=== PATIENT | female | born 1950 | race Caucasian/White ===

== ENCOUNTER 2018-08-02 16:45 | Inpatient (IN) | payer MEDICARE, BC ==
[~2018-08-02] VITALS: Ht 152.4 cm; Wt 58.2 kg
[~2018-08-02 16:45] MED LIST: ADVIL PM PO; ALLO100 PO; ATEN100 PO; ATOR10 PO; CEPH500 PO; CITA20 PO; CLON1 PO; DIAZ5 PO; DICL75ER PO; DIGO.125 PO; DIGO.25 PO; DILT240 PO; DILT360ER PO; FURO40 PO; GLIP2.5ER PO; GLIP5 PO; HYDACE5 PO; INDO50 PO; LISI20 PO; LISI5 PO; LORA1 PO; MAGCHL64ER PO; MAGN84 PO; MAGOXI400 PO; METF500 PO; METO100 PO; METO50 PO; MULTAQ PO; NEBI10 PO; NEBI5 PO; OMEP20ER PO; OMEPRAZOLE MAGN20 MG PO; POTA10T PO; POTCHL10ER PO; PRAV20 PO; SERT100 PO; SPIR25 PO; TRAM50 PO; TRIHYD253A PO; WARF1 PO; WARF2.5 PO; WARF5 PO; XARELTO15 MG PO; ZOLP10 PO; Zofran4 MG PO
[2018-08-02 17:53] LABS: BASOPHILS ABSOLUTE AUTO 0.08 K/mm3 (0.00-0.23); BASOPHILS PERCENT AUTO 1 % (0-2); EOSINOPHILS PERCENT AUTO 0 % (0-6); Hematocrit 43.6 % (33.0-51.0); Hemoglobin 13.7 g/dL (11.5-16.0); IMMATURE GRAN ABSOLUTE AUTO 0.54 K/mm3 (0.00-0.10); IMMATURE GRAN PERCENT AUTO 4 % (0-1); LYMPHOCYTES ABSOLUTE AUTO 0.75 K/mm3 (0.84-5.20); LYMPHOCYTES PERCENT AUTO 5 % (21-46); MONOCYTES ABSOLUTE AUTO 0.32 K/mm3 (0.16-1.47); MONOCYTES PERCENT AUTO 2 % (4-13); Mean Corpuscular HGB 28.1 pg (26.0-34.0); Mean Corpuscular HGB Conc 31.4 g/dL (31.5-36.5); Mean Corpuscular Volume 89 fL (80-100); Mean Platelet Volume 10.1 fL (9.1-12.4); NEUTROPHILS ABSOLUTE AUTO 12.69 K/mm3 (1.96-9.15); NEUTROPHILS PERCENT AUTO 88 % (41-73); Platelet Count 443 K/mm3 (150-400); RDW Coefficient Variation 17.5 % (11.7-14.2); RDW Standard Deviation 57.1 fL (35.1-46.3); Red Blood Cell Count 4.88 M/mm3 (3.80-5.20); White Blood Cell Count 14.38 K/mm3 (4.00-11.30)
[2018-08-02] MEDS ORDERED: FURO40 PO (18:07)
[2018-08-02] MEDS ORDERED: ATOR20 PO (18:08)
[2018-08-02 18:19] LABS: Troponin I 0.037 ng/mL (0.000-0.040)
[2018-08-02 18:23] LABS: Albumin, Blood 3.6 g/dL (3.4-5.0); Albumin/Globulin Ratio 0.7 (0.8-1.8); Bilirubin, Total 0.3 mg/dL (0.1-1.0); Bun/Creatinine Ratio 12.7 (12.0-20.0); Creatinine, Blood 9.05 mg/dL (0.40-1.00); Potassium, Blood 7.6 mmol/L (3.5-5.5); Total Protein, Blood 8.6 g/dL (6.4-8.2)
--- NOTE | 2018-08-02 20:16 | NUR ---
PT ARRIVES TO ICU 10 VIA GURNEY FROM ER, STANDS TO TRANSFER TO BED WITH STEADY GAIT, STATES THAT SHE DOES FEEL SLIGHTLY DIZZY WITH STANDING, INSTRUCTED TO CALL FOR ASSISTANCE PRIOR TO GETTING UP OOB, PT VERB UNDERSTANDING. DR WRIGHT ARRIVES TO BEDSIDE, VERBAL ORDERS RECEIVED. PT IS ALERT AND ORIENTED, SPEAKING IN FULL SENTANCES, RESP RATE IS NOTED ELEVATED TO MID 20S, LUNGS CLEAR THROUHGOUT, SATS ARE 89-90% ON ROOM AIR WHILE AWAKE. HR IRREG, AFIB ON MONITOR, PRESSURE MAINTAINING, PULSES FULL X 4 EXREMITIES, SKIN PALE, COOL, AND DRY, CAP REFILL 4-5 SECONDS. ABD WITH NORMOACTIVE BOWEL TONES, SOFT, NO GUARDING WITH LIGHT PALPATION. 20 G IV ACCESS NOTED TO RIGHT AC, 18 G IV ACCESS NOTED TO LEFT AC, R AC WITH NS 1 LITER BOLUS TO GRAVITY.
[2018-08-02] MEDS ORDERED: POTCHL10ER PO (22:09)
[2018-08-02] MEDS ORDERED: MAGCHL64ER PO (22:10)
[2018-08-02] MEDS ORDERED: PIOG30 PO (22:11)
[2018-08-02] MEDS ORDERED: NEBI10 PO (22:15)
[2018-08-02 22:40] LABS: Prothrombin Time Results >148.7 Sec (9.7-11.5)
[2018-08-02 22:42] LABS: International Normalized Ratio No Calc
[2018-08-02 22:44] LABS: Digoxin (Lanoxin) 3.56 ug/mL (0.80-2.00); Potassium, Blood 6.3 mmol/L (3.5-5.5)
[2018-08-02 23:31] LABS: Source, Urine Clean Catch
[2018-08-02 23:33] LABS: Appearance, Urine Cloudy (Clear); Bilirubin, Urine Neg (Neg); Blood, Urine 4+ (Neg); Color, Urine Yellow (P-Yellow); Glucose Qualitative, Urine 1+ (Neg); Ketones, Urine Neg (Neg); Leukocyte Esterase, Urine Neg (Neg); Nitrite, Urine Neg (Neg); Protein, Urine 4+ (Neg); Urobilinogen, Urine NORM (Normal)
[2018-08-02 23:39] LABS: Bacteria Mod /hpf; Squamous Epithelial Cells Not Seen /hpf (Few)
[2018-08-02 23:40] LABS: Amorphous Heavy (0-Heavy)
[2018-08-03 00:33] LABS: Influenza A Negative (NEGATIVE); Influenza B Negative (NEGATIVE)
[2018-08-03 02:23] LABS: Adenovirus F 40/41 Not Detected (NOT DETECT); Astrovirus Not Detected (NOT DETECT); Campylobacter Sp Not Detected (NOT DETECT); Cryptosporidium Not Detected (NOT DETECT); Cyclospora Cayetanensis Not Detected (NOT DETECT); E. Coli O157 Not Detected (NOT DETECT); Entamoeba Histolytica Not Detected (NOT DETECT); Enteroaggregative E. coli-EAEC Not Detected (NOT DETECT); Enteropathogenic E. coli-EPEC Not Detected (NOT DETECT); Enterotoxigenic E. coli-ETEC Not Detected (NOT DETECT); Giardia Lamblia Not Detected (NOT DETECT); Norovirus GI/GII Not Detected (NOT DETECT); Plesiomonas Shigelloides Not Detected (NOT DETECT); Rotavirus A Not Detected (NOT DETECT); Salmonella Sp Not Detected (NOT DETECT); Sapovirus Not Detected (NOT DETECT); Shiga Toxin-prod E. coli-STEC Not Detected (NOT DETECT); Shigella/Enteroin E. coli-EIEC Not Detected (NOT DETECT); Vibrio Cholerae Not Detected (NOT DETECT); Vibrio Sp Not Detected (NOT DETECT); Yersinia Enterocolitica Not Detected (NOT DETECT)
[2018-08-03 03:30] LABS: Hematocrit 35.3 % (33.0-51.0); Mean Corpuscular HGB 28.4 pg (26.0-34.0); Mean Corpuscular HGB Conc 31.2 g/dL (31.5-36.5); Mean Corpuscular Volume 91 fL (80-100); Mean Platelet Volume 10.4 fL (9.1-12.4); Platelet Count 358 K/mm3 (150-400); RDW Coefficient Variation 17.6 % (11.7-14.2); RDW Standard Deviation 58.7 fL (35.1-46.3); Red Blood Cell Count 3.88 M/mm3 (3.80-5.20); White Blood Cell Count 13.21 K/mm3 (4.00-11.30)
[2018-08-03 03:48] LABS: Magnesium, Blood 1.5 mg/dL (1.6-2.4)
[2018-08-03 03:49] LABS: CPK Creatine Kinase 90 U/L (26-193)
[2018-08-03 03:51] LABS: Alanine Aminotransfer (ALT/SGP 18 U/L (12-78); Albumin, Blood 2.9 g/dL (3.4-5.0); Albumin/Globulin Ratio 0.8 (0.8-1.8); Alk Phos 86 U/L (50-136); Aspartate Aminotrans (AST/SGOT 19 U/L (12-37); Bilirubin, Total 0.2 mg/dL (0.1-1.0); Blood Urea Nitrogen 107 mg/dL (8-24); Bun/Creatinine Ratio 13.2 (12.0-20.0); CO2, Blood 9 mmol/L (21-32); Calcium, Blood 6.8 mg/dL (8.5-10.1); Chloride, Blood 106 mmol/L (98-108); Creatinine, Blood 8.12 mg/dL (0.40-1.00); Globulin, Blood 3.6 g/dL (2.2-4.0); Glomerular Filtration Rate 5 (60-); Glucose, Blood 127 mg/dL (70-99); Potassium, Blood 7.5 mmol/L (3.5-5.5)
[2018-08-03 03:55] LABS: Prothrombin Time Results >148.7 Sec (9.7-11.5)
[2018-08-03 03:56] LABS: International Normalized Ratio No Calc
[2018-08-03 04:23] LABS: Anion Gap 29 mmol/L (6-16); Sodium, Blood 144 mmol/L (136-145); Total Protein, Blood 6.5 g/dL (6.4-8.2)
--- NOTE | 2018-08-03 05:50 | NUR ---
DR CHAUHAN AT BEDSIDE, EKG FROM THIS AM VS LAST NOC PROVIDED, REVIEWED BY MD, NO NEW ORDERS AT THIS TIME.
--- NOTE | 2018-08-03 06:46 | NUR ---
PT RESTS QUIETLY THROUGHOUT SHIFT, C/O NAUSEA X 1, ZOFRAN 4 MG IV ADMIN FOLLOWING WHICH PT CONTINUES TO COMPLAIN OF NOT FEELING WELL. SHE IS UNABLE TO DESCRIBE HOW SHE FEELS UNWELL OTHER THAN TO STATE "JUST FEEL ICKY" SHE DENIES CP/PRESSURE, STATES "IT'S HARD TO TELL" WHEN ASKED IF SHE IS HAVING ANY SHORTNESS OF BREATH OR DYSPNEA, DR CHAUHAN CAME TO BEDSIDE TO EVAL [facility], NO NEW ORDERS AT THAT TIME. PT/INR CONTINUES CRITICALLY HIGH THIS AM, WILL CONT TO MONITOR PER DR CHAUHAN UNLESS SIGNS OF BLEEDING ARE OBSERVED.
--- NOTE | 2018-08-03 07:15 | NUR ---
START OF SHIFT NOTE: PATIENT IS AWAKE AND ALERT, ORIENTED TO SELF AND PLACE, NOT DATE/TIME AND SITUATION, PATIENT IS OBSERVED TO LAUGH/GIGGLE AND THEN ALMOST STARTING TO CRY, LS DIMINISHED, PATIENT HAS HISTORY OF A-FIB AND CURRENTLY OBSERVED TO BE IN A-FIB, BICARB INFUSING , ALSO RECEIVED VIT K IV, DR. WRIGHT IN ORDERED 2 UNITS OF FFP, CRITICAL CARE CONSULT ,DR. ODONNELL NOTIFIED, PATIENT IS RESTING AT THIS TIME, CALL LIGHT IN REACH, WILL CONTINUE TO MONITOR.
[2018-08-03 08:38] LABS: Troponin I 0.05 ng/mL (0.000-0.040)
--- NOTE | 2018-08-03 10:29 | NUR ---
DR. ODONNELL CONSULTING NEW ORDERS RECEIVED, PATIENT HAS FIRST UNIT OF FFPS INFUSING AT THIS TIME, 3 ADDITIONAL UNITS TO INFUSE, CHEMSTICKS AC/HS, PATIENT'S MENTATION HAS CLEARED AND PATIENT IS NOW LESS CONFUSED, INTERACTING WITH FAMILY AT BEDSIDE, CALL LIGHT IN REACH, WILL CONTINUE TO MONITOR.
[2018-08-03 13:43] LABS: International Normalized Ratio 2.57
[2018-08-03 13:50] LABS: Bun/Creatinine Ratio 13.6 (12.0-20.0); Calcium, Blood 6.9 mg/dL (8.5-10.1); Creatinine, Blood 7.97 mg/dL (0.40-1.00)
--- NOTE | 2018-08-03 13:57 | NUR ---
DR. ODONNELL IN ROOM PREPARING FOR DIALYSIS CATHETER INSERTION, MARGUERITE WANG RN, ASSISTING, RT NOTIFIED, BIPAP AT BEDSIDE, WILL CONTINUE TO MONITOR
[2018-08-03 14:50] LABS: PCO2 Arterial 29.3 mmHg (35-45); PO2 Arterial 54.8 mmHg (80-100)
[2018-08-03 14:51] LABS: pH Blood Arterial 7.23 (7.35-7.45)
--- NOTE | 2018-08-03 15:40 | NUR ---
CENTRAL LINE/DIALYSIS CATHETER WAS PLACED BY DR. BEARD TO LEFT GROIN, PATIENT TOLERATED WELL, LUMENS FLUSHED WITH SODIUM CITRATE ANTICOAGULANT, PATIENT RESTING COMFORTABLY AT THIS TIME, FAMILY AT BEDSIDE, CALL LIGHT IN REACH, WILL CONTINUE TO MONITOR.
--- NOTE | 2018-08-03 17:49 | NUR ---
SHIFT SUMMARY NOTE: PATIENT WAS AWAKE BUT SOMEWHAT CONFUSED AT START OF SHIFT, GIGGLED CONTINUOUSLY, BUT ABLE TO FOLLOW COMMANDS, BICARB INFUSING, NO URINE OUTPUT AT START OF SHIFT, LS CLEAR BUT DIMINISHED, A-FIB WITH RATES FROM 80'S TO 100'S, HYPOACTIVE BOWEL SOUNDS PRESENT, MOLINA CATHETER IN PLACE, SKIN INTACT, BRUISE NOTED ON LEFT HIP, SKIN COOL TO TOUCH, PATIENT BECAME MORE ALERT AND ORIENTED ONCE FAMILY VISITED, POTASSIUM DOWN FROM 7.5 TO 6.0, RECEIVED AN AMP OF BICARB IN ADDITION TO BICARB DRIP, ALSO RECEIVED KCENTRA, VITAMIN K IV AND 4 UNITS OF FFP'S D/T HYPERCOAGULATION, PATIENT THEN BECAME SHORT OF BREATH AND FLUID OVERLOADED BUT STARTED TO MAKE URINE, DR. ODONNELL WAQS CONSULTED BY DR. WRIGHT, AND DR. ODONNELL PLACED A COMBINATION CENTRAL LINE/DIALYSIS CATHETER TO THE LEFT FEMORAL, PATIENT TOLERATED WELL, B UT O2 SATURATION IN LOW 80'S, PLACED ON BIPAP, SETTINGS ARE 14/7 WITH FiO2 OF 95 %, O2 SATURATION NOW IN UPPER 80'S TO LOW 90'S, PATIENT APPEARED VERY FIDGETY AND RESTLESS, RECEIVED 1 MG ATIVAN, RESTED FOR A SHORT TIME AND CONTINUOUS TO BE RESTLESS, DAUGHTER STATED "SHE SMOKES MARIJUANA DAILY", PATIENT ALSO STATED "I WOULD LIKE SOME OF THE FINE STUFF", POSSIBLE WITHDRAWAL SYMPTOMS, DR. ODONNELL NOTIFIED, PRECEDEX DRIP ORDERED, CURRENTLY INFUSING AT 0.3 MCG, PATIENT SLIGHTLY LESS RESTLESS, FAMILY AT BEDSIDE, CALL LIGHT IN REACH, WILL CONTINUE TO MONITOR AND GIVE REPORT TO ONCOMING COMPLAINT CLERK.
--- NOTE | 2018-08-03 19:10 | NUR ---
ASSUMED CARE OF PT, BEDSIDE REPORT RECEIVED. PT IS RESTING QUIETLY RECLINING IN BED. SHE ROUSES EASILY TO VERBAL STIMULI HOWEVER MUMBLES RESPONSES WITH BIPAP MASK IN PLACE AND RETURNS TO SLEEP. BIPAP NOTED AT 95% FIO2, PRESSURES 14/7, BUR 14, LUNGS CLEAR BILAT UPPER, DIMIN BILAT BASES, SATS MID 90S AT THESE SETTINGS, TIDAL VOLUMES ARE CURRENTLY CLOSE TO 1000 HOWEVER A LEAK OF 50 L/MIN IS PRESENT, MASK ADJUSTED AND LEAK DECREASED TO 11-18 L/MIN, PT TOLERATED WELL, RESP RATE HIGH TEENS TO LOW 20S. AFIB CONTINUES, HR IRREG S1 AND S2 PRESENT BUT DISTANT, SOME JVD IS NOTED, PRESSURES MAINTAINING AT THIS TIME, CAP REFILL IS BRISK, GENERALIZED EDMEA 1-2+ NONPITTING. NORMOACTIVE BOWEL TONES NOTED, ABD SOFT, NO GRIMACING WITH PALPATION. MOLINA CATH REMAINS IN PLACE DRAINING CLEAR PALE YELLOW URINE TO GRAVITY. BICARB GTT IS NOTED AT 150 ML/HR, AND PRECEDEX GTT AT 0.3 MCG/KG/HR. DAUGHTER AT BEDSIDE.
[2018-08-03 20:36] LABS: Bun/Creatinine Ratio 14.8 (12.0-20.0); Calcium, Blood 6.6 mg/dL (8.5-10.1); Creatinine, Blood 7.71 mg/dL (0.40-1.00); Potassium, Blood 5.1 mmol/L (3.5-5.5)
--- NOTE | 2018-08-03 21:10 | NUR ---
DR WRIGHT NOTIFIED OF LAB RESULTS, ORDER OBTAINED TO DECREASE BICARB GTT TO 75 ML/HR. ADJUSTED PROGRAMMED RATE ON INFUSION PUMP TO 75 ML/HR AT THIS TIME.
[2018-08-04 04:10] LABS: BASOPHILS ABSOLUTE AUTO 0.01 K/mm3 (0.00-0.23); BASOPHILS PERCENT AUTO 0 % (0-2); EOSINOPHILS PERCENT AUTO 0 % (0-6); Hematocrit 27.9 % (33.0-51.0); Hemoglobin 9.4 g/dL (11.5-16.0); IMMATURE GRAN ABSOLUTE AUTO 0.08 K/mm3 (0.00-0.10); IMMATURE GRAN PERCENT AUTO 1 % (0-1); LYMPHOCYTES ABSOLUTE AUTO 0.53 K/mm3 (0.84-5.20); LYMPHOCYTES PERCENT AUTO 6 % (21-46); MONOCYTES ABSOLUTE AUTO 0.57 K/mm3 (0.16-1.47); MONOCYTES PERCENT AUTO 6 % (4-13); Mean Corpuscular HGB 28.7 pg (26.0-34.0); Mean Corpuscular HGB Conc 33.7 g/dL (31.5-36.5); NEUTROPHILS ABSOLUTE AUTO 8.13 K/mm3 (1.96-9.15); NEUTROPHILS PERCENT AUTO 87 % (41-73); Platelet Count 232 K/mm3 (150-400); RDW Coefficient Variation 16.8 % (11.7-14.2); RDW Standard Deviation 51.6 fL (35.1-46.3); Red Blood Cell Count 3.27 M/mm3 (3.80-5.20); White Blood Cell Count 9.32 K/mm3 (4.00-11.30)
[2018-08-04 04:24] LABS: International Normalized Ratio 1.61; Prothrombin Time Results 16.3 Sec (9.7-11.5)
[2018-08-04 04:29] LABS: Alanine Aminotransfer (ALT/SGP 19 U/L (12-78); Albumin, Blood 2.9 g/dL (3.4-5.0); Albumin/Globulin Ratio 0.9 (0.8-1.8); Alk Phos 78 U/L (50-136); Anion Gap 22 mmol/L (6-16); Aspartate Aminotrans (AST/SGOT 19 U/L (12-37); Bilirubin, Total 0.5 mg/dL (0.1-1.0); Blood Urea Nitrogen 114 mg/dL (8-24); Bun/Creatinine Ratio 14.5 (12.0-20.0); CO2, Blood 27 mmol/L (21-32); Calcium, Blood 6.2 mg/dL (8.5-10.1); Chloride, Blood 96 mmol/L (98-108); Creatinine, Blood 7.86 mg/dL (0.40-1.00); Globulin, Blood 3.2 g/dL (2.2-4.0); Glomerular Filtration Rate 5 (60-); Glucose, Blood 172 mg/dL (70-99); Magnesium, Blood 1.9 mg/dL (1.6-2.4); Phosphorus, Blood 6.7 mg/dL (2.5-4.9); Potassium, Blood 4.8 mmol/L (3.5-5.5); Sodium, Blood 145 mmol/L (136-145); Total Protein, Blood 6.1 g/dL (6.4-8.2)
[2018-08-04 04:32] LABS: Mean Corpuscular Volume 85 fL (80-100)
--- NOTE | 2018-08-04 06:25 | NUR ---
PRECEDEX GTT TITRATED DOWN TO 0.2 MCG/KG/HR THIS SHIFT FROM 0.3 MCG/KG/HR AT HS, PT HAS TOLERATED WELL. SHE REMAINS EASILY AROUSABLE TO MOVEMENT IN ROOM THIS AM, SHE IS NOW ABLE TO STATE THAT SHE IS IN THE HOSPITAL IN 2019 ALTHOUGH SHE BELIEVES THAT SHE IS IN A [facility] BECAUSE SHE HAD A STROKE, DISCUSSED THAT SHE IS IN [facility] IN [place] AND THAT SHE WAS ADMITTED FOR ACUTE RENAL FAILURE, SHE VERBALIZED UNDERSTANDING. ATTEMPTS AT REPOSITIONING PT SECONDARY TO DECREASED FREQUENCY OF SPONTANEOUS REPOSITIONING AND SEDATION FOR BIPAP TOLERANCE RESULTED IN PT REPOSITIONING HERSELF BACK TO THE ORIGINAL POSITION OF COMFORT WITHIN JUST A FEW MINUTES OF TURINING. URINE OUTPUT CONTINUES TO IMPROVE WITH A TOTAL OF APPROX 600 ML OUT THIS SHIFT, LUNG SOUNDS WITH SLIGHT IMPROVEMENT FROM HS, MAINTAINING SATS AND BIPAP FIO2 HAS BEEN TITRATED DOWN THROUGHOUT SHIFT PER RT.
--- NOTE | 2018-08-04 07:15 | NUR ---
DR. WRIGHT AT BEDSIDE FOR EVALUATION.
--- NOTE | 2018-08-04 07:15 | NUR ---
RECEIVED REPORT FROM CINDY GABRIEL, AND ASSUMED CARE OF PT.
--- NOTE | 2018-08-04 07:55 | NUR ---
DR. ESPINO AT BEDSIDE FOR EVALUATION. ADVISED THAT HOME MEDICATIONS HAVE NOT BEEN ORDERED AND WE PLAN TO TRIAL BEING OFF BIPAP AND ON NASAL CANNULA OXYGEN SO PT CAN EAT. DR. ESPINO TO ORDER HOME MEDS AND DIET.
--- NOTE | 2018-08-04 10:09 | NUR ---
NURSING SUMMARY ALERT AND ORIENTED X4, SLOW TO RESPOND. BIPAP WAS IN PLACE UNTIL 0815 WITH SETTINGS AT 14/7/45% AND MOVED TO 3L O2 NC, SATS REMAINING 93-97%, NON-PRODUCTIVE COUGH. PRECEDEX AT 0.2 MCG/KG/HR INFUSING WHILE ON BIPAP, STOPPED WHEN CHANGED TO NASAL CANNULA. AFIB ON MONITOR, HR 90'S - 110 NIST IF TGE TUIN, INCREASES TO 117-125 WITH EXERTION. MOLINA DRAINING CLEAR YELLOW URINE. CBG 178, NO INSULIN COVERAGE. STARTED ON ADA DIET, TOLERATED WELL, DENIES NAUSEA AND VOMITING. DENIES DIARRHEA SINCE ADMISSION. DENIES PAIN. DR. ESPINO AT BEDSIDE THIS AM, ADVISED THAT PT DOES NOT HAVE HER HOME MEDICATIONS ORDERED. ZOLOFT ORDERED AND GIVEN. NO DIALYSIS TODAY. DILAYSIS CENTRAL LINE CATH IN PLACE TO LEFT GROIN, CDI. THREE PERIPHERAL IV SITES.
--- NOTE | 2018-08-04 10:35 | NUR ---
CALLED DR. ESPINO FOR ORDERS TO TRANSFER PT TO PCU WITH TELEMETRY AND STATUS OF ORDERING HOME MEDICATIONS. PROVIDED NEW ORDER TO TRANSFER TO PCU, ORDERED ZOLOFT, AND WANTS TO HOLD ALL OTHER HOME MEDICATIONS NOW DUE TO KIDNEY FAILURE.
--- NOTE | 2018-08-04 12:00 | NUR ---
CALLED REPORT TO CINDY ROSADO, WHOM WILL TAKE OVER CARE WHEN PT IS TRANSFERRED TO PCU ROOM 15.
--- NOTE | 2018-08-04 12:20 | NUR ---
PT TRANSFERRED TO ROOM PCU 15.
--- NOTE | 2018-08-04 16:36 | NUR ---
Met with pt and her dtr regarding Advanced Directive. Mrs. Baltazar appears tired, but smiles easily. she was in and out of sleep throughout visit. spoke at length with dtr. Provided education and guidence regarding the purpose and benefit of AD. Pt and dtr agree this would be helpful. They plan on completing this document this hospitalization. Advised I would be available to assist completion. Offered prayer and both were happy to recieve it. I will remain available.
--- NOTE | 2018-08-04 19:51 | NUR ---
SHIFT SUMMARY Assumed care of pt upon arrival to unit at 1215. Pt on 3 LPM NC. Required O2 to be titrated up to 5 LPM to maintain O2 saturations greater than 90%. Pt incontinent of stool. Pt had one episode of diarrhea. Atrial fibrillation per telemetry. Femoral dialysis catheter noted. Pt struggles to follow directions. Forgetful. Family visited pt intermittently throughout the day. Bed in lowest position. Call light in reach. Bed alarm on. Bedside report given to Mil WHITE.
--- NOTE | 2018-08-05 00:27 | NUR ---
UPDATE PATIENT'S HEART RATE STARTED TO TREND IN THE 120'S AND STARTED TO TOUCH UP INTO THE 130'S. WHEN PATIENT WAS CHECKED ON SHE STATED THAT SHE DID NOT FEEL WELL BUT SHE DID NOT KNOW EXACTLY WHY IT WAS SHE FELT BAD. VITAL SIGNS WERE CHECKED AND PATIENT WAS FOUND TO HAVE A LOW O2 READING. STATING IN THE 60'S-70'S%. HOWEVER, IT WAS DIFFICULT TO OBTAIN A GOOD O2 READING DUE TO LOW PERFUSION INDEX. RESPIRTORY THERAPIST WENDY CALLED AND ARRIVED TO BEDSIDE. PLACED PATIENT ON BIPAP AND WAS ABLE TO OBTAIN A MORE CLEAR O2 READING. PATIENT NOW ON BIPAP AT 16/8 WITH FIO2 OF 95%. PATIENT NOW STATING AT 97%. PATIENT APPEARS TO BE RESTING WELL AT THIS TIME WITH NO SIGNS OF DISTRESS. HEART RATE APPEARS TO BE BEGINNING TO TREND BACK DOWN. WILL CONTINUE TO MONITOR PATIENT.
[2018-08-05 04:21] LABS: BASOPHILS PERCENT AUTO 0 % (0-2); EOSINOPHILS PERCENT AUTO 0 % (0-6); Hemoglobin 8.7 g/dL (11.5-16.0); IMMATURE GRAN ABSOLUTE AUTO 0.09 K/mm3 (0.00-0.10); IMMATURE GRAN PERCENT AUTO 1 % (0-1); LYMPHOCYTES ABSOLUTE AUTO 0.66 K/mm3 (0.84-5.20); LYMPHOCYTES PERCENT AUTO 8 % (21-46); MONOCYTES ABSOLUTE AUTO 0.57 K/mm3 (0.16-1.47); MONOCYTES PERCENT AUTO 7 % (4-13); Mean Corpuscular HGB 28.8 pg (26.0-34.0); Mean Corpuscular HGB Conc 33.5 g/dL (31.5-36.5); Mean Corpuscular Volume 86 fL (80-100); NEUTROPHILS ABSOLUTE AUTO 6.62 K/mm3 (1.96-9.15); NEUTROPHILS PERCENT AUTO 83 % (41-73); Platelet Count 196 K/mm3 (150-400); RDW Coefficient Variation 16.2 % (11.7-14.2); RDW Standard Deviation 51.1 fL (35.1-46.3); Red Blood Cell Count 3.02 M/mm3 (3.80-5.20); White Blood Cell Count 7.94 K/mm3 (4.00-11.30)
[2018-08-05 04:34] LABS: International Normalized Ratio 1.09; Prothrombin Time Results 11.5 Sec (9.7-11.5)
[2018-08-05 04:41] LABS: Magnesium, Blood 1.7 mg/dL (1.6-2.4)
[2018-08-05 04:42] LABS: Albumin, Blood 2.8 g/dL (3.4-5.0); Anion Gap 13 mmol/L (6-16); Blood Urea Nitrogen 105 mg/dL (8-24); Bun/Creatinine Ratio 15.8 (12.0-20.0); CO2, Blood 33 mmol/L (21-32); Calcium, Blood 6.1 mg/dL (8.5-10.1); Chloride, Blood 94 mmol/L (98-108); Creatinine, Blood 6.66 mg/dL (0.40-1.00); Glomerular Filtration Rate 7 (60-); Glucose, Blood 172 mg/dL (70-99); Phosphorus, Blood 4.4 mg/dL (2.5-4.9); Potassium, Blood 4.1 mmol/L (3.5-5.5); Sodium, Blood 140 mmol/L (136-145)
--- NOTE | 2018-08-05 06:43 | NUR ---
SHIFT SUMMARY PATIENT APPEARED TO TOLERATE THE BIPAP WELL FOR THE REST OF THE NIGHT. PATIENT MEDICATED FOR ANXIETY X 1. PATIENT APPEARED TO SLEEP WELL THROUGHOUT THE REST OF THE NIGHT WELL. PATIENT CONTINUES TO STATE, "I JUST DON'T FEEL GOOD" BUT IS UNABLE TO EXPRESS EXACTLY WHY SHE DOES NOT FEEL GOOD. PATIENT REPORTS HER BREATHING IS FEELING BETTER AND DENIES ANY PAIN AT THIS TIME. IV FLUIDS AND ABX GIVEN PER ORDERS. WILL CONTINUE TO MONITOR PATIENT AND REPORT TO ONCOMING RN.
[2018-08-05 09:13] LABS: Digoxin (Lanoxin) 2.18 ug/mL (0.80-2.00)
--- NOTE | 2018-08-05 09:15 | NUR ---
CALLED DR WRIGHT WITH DIOXIN LEVEL RESULTS PER HIS REQUEST, NO NEW ORDERS AT THIS TIME
--- NOTE | 2018-08-05 14:16 | NUR ---
[facility] Assumed care of pt at 0700 from Mil WHITE. Pt on BiPAP, sleeping, at time of report. Family at bedside shortly after shift change. Dr Johansen at bedside spoke with family. Stated plan to not give diaylsis today. Verbal orders received from provider. Dr Johansen then called unit to provide additional orders. Dr Bell at bedside shortly afterwards, also discussed plan of care with the pt's family. Pt taken off BiPAP and required 15 LPM via oxymizer to maintain O2 saturations above 90%. Pt tolerated breaks well. Pt off BiPAP for maximum of 45 minutes before she no longer maintains O2 saturations above 90% with 15 LPM oxymizer. Family departed from bedside around 0900. Pt off BiPAP to eat lunch, at this time pt was sitting up in chair. Pt was not maintaining O2 saturations above 90%, therefore she was placed back on BiPAP. This RN paged Dr Conway. Dr Conway at bedside to see pt. Discussed IV fluids and pt's current O2 needs. New orders given. This RN gave pt a break from BiPAP for oral care and educated pt on flutter valve and incentive spirometer. Pt demonstrated correct usage of both devices. Pt back to bed and BiPAP placed back on patient. Family at bedside shortly afterwards. Update on pt condition given. Verbalizes understanding that pt needs to stay on BiPAP at this time. Family vebalizes concern that their presence is causing the pt to pull on mask and try to talk instead of focusing on breathing. Family states plan to leave for the day but will call for updates on the pt. Provided with unit phone number. Will continue to monitor.
--- NOTE | 2018-08-05 17:49 | NUR ---
SHIFT SUMMARY Pt has been on BiPAP almost continuously since last note. Dr Conway rounded on patient again. Update given to provider. For most recent break, pt was off BiPAP for about ten minutes, assisted to chair, and then placed back on BiPAP as her SpO2 was 80%-85%. Pt did not visibly appear to be in distress. Due to desaturation and BiPAP, pt has not been given her dinner tray yet. Will continue to closely monitor until care handoff and bedside report with oncoming RN.
--- NOTE | 2018-08-05 18:48 | NUR ---
UPDATE Pt taken off BiPAP and ate dinner. Pt wearing 15 LPM oxymizer and maintaining O2 saturations of 85% or greater. This RN witnessed pt independently using flutter valve and incentive spirometer without being asked to do so. Pt used these devices correctly.
--- NOTE | 2018-08-05 19:45 | NUR ---
PM NOTE. ASSUMED CARE OF PT APROX 1900, PT IS A&O W/SOME CONFUSION, PT HAS HARD TIME REMEMBERING THE YEAR SHE WAS BORN, AND FORGETS THE NAMES FOR THINGS "LIGHTS". PT WAS ADMITTED DUE TO [facility], PT IS CURRENTLY ON BIPAP AT 16/8 AND FIO2 OF 70% AT 91% O2 SATS. WHEN PT IS NOT ON BIPAP SHE REQUIRES 15L OXYMIZER WITH SATS 85-90%. PT BECAME VERY ANXIOUS WHEN BIPAP WAS PLACED. TELE INTACT, AFIB IN THE 100'S-120'S PER ACCOUNT FINANCIAL MANAGER, PT'S BP 164/85, TRACE EDEMA NOTED TO THE PT'S BLUE AND 1+ EDEMA NOTED TO THE PT'S BLLE. L/S COARSE T/O AND DIM IN THE BASES. BT PRESENT AND HYPOACTIVE, ABD IS SOFT AND NONTENDER TO PALP. CALL LIGHT IN REACH, BED IS LOCKED AND LOW W/BED ALARM ON. WILL CONTINUE TO MONITOR.
[2018-08-06 05:00] LABS: BASOPHILS ABSOLUTE AUTO 0.01 K/mm3 (0.00-0.23); BASOPHILS PERCENT AUTO 0 % (0-2); EOSINOPHILS ABSOLUTE AUTO 0.01 K/mm3 (0.00-0.68); EOSINOPHILS PERCENT AUTO 0 % (0-6); Hematocrit 24.8 % (33.0-51.0); IMMATURE GRAN ABSOLUTE AUTO 0.12 K/mm3 (0.00-0.10); IMMATURE GRAN PERCENT AUTO 2 % (0-1); LYMPHOCYTES ABSOLUTE AUTO 0.54 K/mm3 (0.84-5.20); LYMPHOCYTES PERCENT AUTO 8 % (21-46); MONOCYTES ABSOLUTE AUTO 0.26 K/mm3 (0.16-1.47); MONOCYTES PERCENT AUTO 4 % (4-13); Mean Corpuscular HGB 28.5 pg (26.0-34.0); Mean Corpuscular HGB Conc 32.3 g/dL (31.5-36.5); Mean Corpuscular Volume 88 fL (80-100); Mean Platelet Volume 10.3 fL (9.1-12.4); NEUTROPHILS ABSOLUTE AUTO 6.07 K/mm3 (1.96-9.15); NEUTROPHILS PERCENT AUTO 87 % (41-73); Platelet Count 151 K/mm3 (150-400); RDW Coefficient Variation 15.9 % (11.7-14.2); RDW Standard Deviation 52.1 fL (35.1-46.3); Red Blood Cell Count 2.81 M/mm3 (3.80-5.20); White Blood Cell Count 7.01 K/mm3 (4.00-11.30)
[2018-08-06 05:13] LABS: International Normalized Ratio 1.13; Prothrombin Time Results 11.8 Sec (9.7-11.5)
[2018-08-06 05:15] LABS: Albumin, Blood 2.6 g/dL (3.4-5.0); Anion Gap 10 mmol/L (6-16); Blood Urea Nitrogen 84 mg/dL (8-24); Bun/Creatinine Ratio 15.9 (12.0-20.0); CO2, Blood 33 mmol/L (21-32); Calcium, Blood 6.1 mg/dL (8.5-10.1); Chloride, Blood 98 mmol/L (98-108); Creatinine, Blood 5.27 mg/dL (0.40-1.00); Glomerular Filtration Rate 9 (60-); Glucose, Blood 156 mg/dL (70-99); Magnesium, Blood 1.6 mg/dL (1.6-2.4); Phosphorus, Blood 3.2 mg/dL (2.5-4.9); Potassium, Blood 3.4 mmol/L (3.5-5.5); Sodium, Blood 141 mmol/L (136-145)
--- NOTE | 2018-08-06 07:45 | NUR ---
SHIFT SUMMARY. PT HAS USED BIPAP MOST OF THIS SHIFT. AT APROX 0550 PT HAD PULLED BIPAP OFF AND HER SATS HAD DROPPED TO 74-78% ON 15L OXYMIZER, PT WAS PUT BACK ON THE BIPAP WITH AN FIO2 OF 100% AND GIVEN ATIVAN TO HELP KEEP THE BIPAP ON, IT TOOK APROX 10 MINS FOR PT TO RECOVER HER O2 SATS UP TO 86-88%. WILL CONTINUE TO TITRATE FIO2 TOLERATED. PT'S VS HAVE BEEN STABLE T/O SHIFT. PT'S MOLINA IS PATENT AND DRAINING CLEAR, YELLOW URINE TO GRAVITY. CALL LIGHT IN REACH, BED IS LOCKED AND LOW WITH BED ALARM ON, WILL CONTINUE TO MONITOR UNTIL REPORT IS GIVEN TO ONCOMING RN.
--- NOTE | 2018-08-06 09:55 | NUR ---
BEGINNING OF SHIFT Assumed care of pt at 0700. Report received from Echo WHITE. Pt on BiPAP with 100% FiO2. Titrated down to 80% successfully. Christian from imaging in room to take pt to imaging for 2V chest xray. Pt placed on 15 LPM via nonrebreather. When pt back on unit, this RN paged Dr Conway for order for airvo per recommendation from Nena JOE. O2 sats 85%-89% on nonrebreather. Pt placed on airvo. Pt did not tolerate airvo well as she was breathing through her mouth depsite continuous education from RT and RN that she needs to breathe through her nose. Pt became tachycardic per telemetry with HR in 130s and 140s; this is typical trend when she is taken off BiPAP. BiPAP eventually placed back on patient. Dr Bell in to see patient. Stated that pt may benefit from transfer to ICU. This RN told Dr Bell that update will be given to Dr Conway when he calls back. Pt's HR started to trend downward but she was still averaging with HR in 120s. Pt in room was visibly agitated and attempting to talk to family. This RN educated family that pt needs to rest, focus on breathing instead of talking, and could use a decrease in stimulation. Family verbalized understanding and soon departed from room. Will continue to closely monitor patient. This RN spoke to Dr Conway in person. Notified that pt is on airvo and Dr Bell recommended transfer to ICU. Notified Dr Conway that pt is on BiPAP with 80% FiO2. No new orders at this time.
--- NOTE | 2018-08-06 14:10 | NUR ---
CALL PLACED TO DR YARBROUGH This RN placed call to Dr Yarbrough around 1200 regarding pt's rapid heart rate. Pt's heart rate has continually trended upwards since this morning. When pt is on BiPAP, HR is in 120s, when pt is on airvo or mobilizing between bed and chair, heart rate is in 140s. New orders given.
--- NOTE | 2018-08-06 17:00 | NUR ---
SHIFT SUMMARY Pt's heart rate trended down after administration of Coreg. Pt on BiPAP after Coreg administration. Pt has had visitors intermittently throughout day. No significant changes since last note. Report given to oncoming nurse, Rubin, who assumed care of pt as of 1644.
[2018-08-07 04:38] LABS: Hematocrit 24.6 % (33.0-51.0)
[2018-08-07 04:56] LABS: International Normalized Ratio 1.44; Prothrombin Time Results 14.8 Sec (9.7-11.5)
[2018-08-07 05:03] LABS: Albumin, Blood 2.5 g/dL (3.4-5.0); Anion Gap 11 mmol/L (6-16); Blood Urea Nitrogen 69 mg/dL (8-24); Bun/Creatinine Ratio 18.8 (12.0-20.0); CO2, Blood 30 mmol/L (21-32); Calcium, Blood 7.2 mg/dL (8.5-10.1); Chloride, Blood 97 mmol/L (98-108); Creatinine, Blood 3.68 mg/dL (0.40-1.00); Glomerular Filtration Rate 13 (60-); Glucose, Blood 125 mg/dL (70-99); Phosphorus, Blood 2.9 mg/dL (2.5-4.9); Potassium, Blood 3.1 mmol/L (3.5-5.5); Sodium, Blood 138 mmol/L (136-145)
[2018-08-07 05:05] LABS: Magnesium, Blood 1.1 mg/dL (1.6-2.4)
--- NOTE | 2018-08-07 08:11 | NUR ---
SHIFT SUMMARY PT ALERT AND ORIENTED AT TIMES T/O SHIFT. SHE WAS PLEASANT AND COOPERATIVE WITH VITALS AND ASSESSMENTS, THOUGH SHE WAS NON COMPLIANT AT TIMES WITH KEEPING HER OXYGEN CANNULA, OXIMYZER, AIRVO AND BIPAP IN PLACE. SHE REQUIRED FREUENT ROUNDING AND MASK ADJUSTMENT. PT DESATS TO UPPER 70'S ON ROOM AIR, BUT REBOUNDS QUICKLY. PT VITALS WERE STABLE WITH THE EXCEPTION OF HER O2 SATURATION AND OXYGEN DEMAND. PT WAS ABLE TO MAKE NEEDS KNOWN AT TIMES AND CALL LIGHT WAS LEFT WITHIN REACH. PT SLEPT T/O THE MAJORITY OF THE SHIFT. SHE TOOK HER PILLS WELL AND DID NOT DEMONSTRATE ANY ISSUES WITH THIS. PT WILL CONTINUE TO BE MONITORED UNTIL HANDOFF TO DAYSHIFT RN.
[2018-08-07 13:43] LABS: Magnesium, Blood 1.7 mg/dL (1.6-2.4); Potassium, Blood 3.6 mmol/L (3.5-5.5)
--- NOTE | 2018-08-07 14:18 | NUR ---
LABS CALLED REPEAT K AND MAGNESIUM TO DR WRIGHT PER HIS REQUEST. NO ORDERS. CONTINUE POT.
--- NOTE | 2018-08-07 17:55 | NUR ---
EVENING NOTE PT ALERT AND OREINTED. VISITING WITH LOTS OF FAMILY TODAY. PT EXPRESSED CINFIDENCE IN HER HEALING COMPARED TO YESTERDAY. PT DID NOT NEED BIPAP FOR RESCUE AT ALL. TOLERATED AIRVO WELL. OCCASIONALLY SHE NEEDS REMINDING TO PLACE THE NASEL PRONGS IN HER NOSE. UP TO BSC X1. DID NOT BECOME VERY SOB WITH ACTIVITY. EATING AND DRINKING WELL. DESATS MILDLY WITH EATING. MOLINA PATENT. LARGE NATURAL OUTPT. CONTINUE POT.
[2018-08-08 04:02] LABS: Hematocrit 25.6 % (33.0-51.0); Hemoglobin 8.1 g/dL (11.5-16.0)
[2018-08-08 04:18] LABS: International Normalized Ratio 1.91; Prothrombin Time Results 19.1 Sec (9.7-11.5)
[2018-08-08 04:20] LABS: Albumin, Blood 2.4 g/dL (3.4-5.0); Anion Gap 12 mmol/L (6-16); Blood Urea Nitrogen 55 mg/dL (8-24); Bun/Creatinine Ratio 21.9 (12.0-20.0); CO2, Blood 24 mmol/L (21-32); Calcium, Blood 7.1 mg/dL (8.5-10.1); Chloride, Blood 104 mmol/L (98-108); Creatinine, Blood 2.51 mg/dL (0.40-1.00); Glomerular Filtration Rate 20 (60-); Glucose, Blood 146 mg/dL (70-99); Magnesium, Blood 1.4 mg/dL (1.6-2.4); Potassium, Blood 3.1 mmol/L (3.5-5.5); Sodium, Blood 140 mmol/L (136-145)
--- NOTE | 2018-08-08 06:22 | NUR ---
SHIFT SUMMARY PATIENT ALERT AND ORIENTED X 3 THORUGHOUT SHIFT. SHE WAS PLEASANT AND COOPERATIVE WITH VITALS AND ASSESSMENTS. PT DID HAVE SOME PERIODS OF ANXIETY T/O SHIFT. THESE WERE OBSERVED TO HAPPEN DURING INSTANCES OF DESATURATION. PT REQUIRED BIPAP T/O THE NIGHT AND CONTINUED TO DESAT AT TIMES. PT CURRENTLY STABLE ON 80% FIO2 WITH SATS IN THE 90'S. ANTI ANXIETY MEDS WERE ADMINISTERED NEEDED FOR ANXIETY. PT BLOOD PRESSURE WAS ELEVATED T/O THE SHIFT. DOCTOR WAS NOTIFIED AND ORDERS WERE RECIEIVED TO ADMINISTER ANTI HYPERTENSIVES NEEDED. PT SLEEPING SOUNDLY AT THIS TIME, DENIED ANY COMPLAINTS OF PAIN AND WILL CONTINUE TO BE MONITORED UNTIL HANDOFF TO DAYHSHIFT RN.
--- NOTE | 2018-08-08 08:15 | NUR ---
AM ASSESSMENT: Pt resing in bed with BIPAP on at 80% fio2 31/12. BIox in the upper 90's. Pt requestiong to come off of bipap for breakfast and comfort. Placed on airvo at 80% fio2. Pt tolerating well. LS with crackles and coarse throughout. BT positive. PUlses palp. HR irregular, tele shows afib in the low 100 range. BP elevated but Pt states that she is anxious. Will treat with BP meds and anxiety medicaion per orders. Denies other needs. Stable at this time. Call light in reach.
--- NOTE | 2018-08-08 14:01 | NUR ---
update: Pt dozing in bed with bipap on. Was able to decrease BIpap to 60% fio2 and biox at 96%. Will continue to monitor and adjust PRN for biox >90%. Call light in reach. Will monitor.
--- NOTE | 2018-08-08 19:37 | NUR ---
Shift Summary: Pt dozing in bed at this time with Airvo on. BIox is 97% on 74% FIO2 and 30L bleed in. We were able to titrate oxygen down today. When Pt was on Bipap we were able to totrate down to 50% fio2. Pt still SOB at times and does desaturate when she pulls her oxygen off, although she is much quicker to recover. HR has remained in Afib at a rate of 90-120's. Other VSS throughout shift. Pt has min cath and has been draining clear yellow urine. Pt has had C/O a Headache this am. Was able to treat with tylenol per orders. She has also had C/O anxiety today and was treated with ativan per orders. NO other changes this shift. Report given to night RN.
--- NOTE | 2018-08-08 19:45 | NUR ---
PM NOTE. ASSUMED CARE OF PT APROX 1900, PT IS A&O AND RELAXED AND AWAKE IN THE BED, SHE IS CURRENTLY ON THE AIRVO AT 45L AND 74% FIO2 WITH SATS AT 95%. TELE INTACT, AFIB IN THE 100'S PER FRUIT CHECKER, PT'S BP 121/72, TRACE EDEMA NOTED TO THE PT'S BLLE AND BLUES. L/S COARSE RHONCHI AND INSPIRATORY WHEEZES T/O, RR IS 32, EVEN AND SLIGHTLY LABORED. BT PRESENT AND HYPERACTIVE, ABD IS SOFT AND TENDER TO PALP. PT'S TEMP IS CURRENTLY 99.4, WILL MONITOR. PT'S FAMILY AT THE BEDSIDE FOR APROX 15 MINS. CALL LIGHT IN REACH, BED IS LOCKED AND LOW WILL CONTINUE TO MONITOR.
--- NOTE | 2018-08-09 01:44 | NUR ---
PT UPDATE... AT 2300 PT HAD INCREASED ANXIETY AND HER RR HAD INCREASED TO OVER 40 AND WAS LABORED. PT'S ANXIETY HAD INCREASED GREATLY WELL. VS WERE CHECKED AND PT WAS PLACED ON BIPAP. PT'S TEMP WAS 102.2 AND RR WAS STILL IN THE 40'S, HER HR WAS TRENDING UP TO THE 120'S-130'S AT THIS TIME WELL. PROVIDER CALLED AND ORDERS OBTAINED TO INCREASE DOSE OF ATIVAN AND GIVE TYLENOL. THIS WAS DONE, PT'S TEMP CAME DOWN TO 98.6 BUT RR WAS STILL IN THE 40'S AND HER HR CONTINUED TO TREND UP. PROVIDER WAS CALLED AGAIN AND ORDERS OBTAINED FOR 5 MG LOPRESSOR IV PUSH. THIS WAS GIVEN, PT'S HR CAME DOWN TO 116. PT'S BP 124/85 AND RR IS 32. WILL CONTINUE TO MONITOR.
[2018-08-09 04:44] LABS: BASOPHILS ABSOLUTE AUTO 0.01 K/mm3 (0.00-0.23); BASOPHILS PERCENT AUTO 0 % (0-2); EOSINOPHILS ABSOLUTE AUTO 0.05 K/mm3 (0.00-0.68); EOSINOPHILS PERCENT AUTO 1 % (0-6); Hemoglobin 7.6 g/dL (11.5-16.0); IMMATURE GRAN ABSOLUTE AUTO 0.12 K/mm3 (0.00-0.10); IMMATURE GRAN PERCENT AUTO 2 % (0-1); LYMPHOCYTES ABSOLUTE AUTO 0.78 K/mm3 (0.84-5.20); LYMPHOCYTES PERCENT AUTO 13 % (21-46); MONOCYTES ABSOLUTE AUTO 0.31 K/mm3 (0.16-1.47); MONOCYTES PERCENT AUTO 5 % (4-13); Mean Corpuscular HGB 27.9 pg (26.0-34.0); Mean Corpuscular HGB Conc 31.7 g/dL (31.5-36.5); Mean Corpuscular Volume 88 fL (80-100); Mean Platelet Volume 10.6 fL (9.1-12.4); NEUTROPHILS ABSOLUTE AUTO 4.68 K/mm3 (1.96-9.15); NEUTROPHILS PERCENT AUTO 79 % (41-73); Platelet Count 124 K/mm3 (150-400); RDW Coefficient Variation 15.9 % (11.7-14.2); RDW Standard Deviation 51.1 fL (35.1-46.3); Red Blood Cell Count 2.72 M/mm3 (3.80-5.20); White Blood Cell Count 5.95 K/mm3 (4.00-11.30)
[2018-08-09 05:00] LABS: Albumin, Blood 2.2 g/dL (3.4-5.0); Anion Gap 11 mmol/L (6-16); Blood Urea Nitrogen 41 mg/dL (8-24); Bun/Creatinine Ratio 20.3 (12.0-20.0); CO2, Blood 24 mmol/L (21-32); Calcium, Blood 7.3 mg/dL (8.5-10.1); Chloride, Blood 106 mmol/L (98-108); Creatinine, Blood 2.02 mg/dL (0.40-1.00); Glomerular Filtration Rate 26 (60-); Glucose, Blood 149 mg/dL (70-99); Magnesium, Blood 1.5 mg/dL (1.6-2.4); Phosphorus, Blood 2.2 mg/dL (2.5-4.9); Potassium, Blood 3.1 mmol/L (3.5-5.5); Sodium, Blood 141 mmol/L (136-145)
[2018-08-09 05:03] LABS: International Normalized Ratio 2.26; Prothrombin Time Results 22.2 Sec (9.7-11.5)
--- NOTE | 2018-08-09 06:14 | NUR ---
SHIFT SUMMARY. PT VS HAVE REMAINED STABLE SINCE PREVIOUS UPDATE. PT IS AFIB 90'S-100'S, RR 24, BIPAP SETTINGS 14/8, 40%FIO2. PT IS AFEBRILE AT 98.5. PT'S MOLINA IS PATENT AND DRAINING CLEAR, YELLOW URINE TO GRAVITY, MOLINA IS SECURED TO THE BED. CALL LIGHT IN REACH, BED IS LOCKED AND LOW WILL CONTINUE TO MONITOR UNTIL REPORT IS GIVEN TO ONCOMING RN.
--- NOTE | 2018-08-09 08:31 | NUR ---
NURSING PCU DAYSHIFT: Assumed care of pt at approx 0700. A/O, cooperative w/care, anxious this a.m. Denies any pain/discomfort, general weakness noted, able to reposition and transfer w/one staff assist. Skin is fragile w/scattered bruising on UE's, no breakdown noted. Tele in place, afib w/HR 80's, no c/o CP/pressure, SBP 130's, no noted edema. L/S coarse t/o w/scattered I/W, dyspnea w/minimal exertion, respirations shallow and rapid, O2 sat low to mid 90's upon initial assessment while on bipap w/settings of 14/8, FiO2 40%, backup rate 12, harsh productive cough, continuous bedside O2 monitoring. Abd SNT, BT+, FC w/stat lock in place and draining clear/yellow urine. PIV x2, s/l at this time. Removed bipap this a.m. and placed pt on Airvo w/settings of 45L/75% FiO2, tolerating well. OOB to chair for breakfast. Pt denies any current needs or questions regarding plan of care, Mg and K+ riders administered as ordered. Call light in reach, awaiting rounding from PMD, die inspector, and brass reclaimer, cont to monitor for changes.
--- NOTE | 2018-08-09 16:38 | NUR ---
NURSING PCU DAYSHIFT SUMMARY: SBP 140's t/o the afternoon, remains afib w/HR 120-130's at rest, no c/o CP/pressure. Pt has spent much of the shift on 7L HF NC, tolerating well w/O2 sat maintaining >90%, continuous bedside O2 monitoring remains in place. Many family/friends at bedside intermittently t/o the shift, update provided. General weakness remains, able to ambulate w/one staff assist, tolerates well though experiences mild dyspnea. FC remains in place. OOB to bathroom using FWW, large formed/soft BM. Continues to have good appetite and is tolerating meals well. Seen by PMD, nephrology, and pulmonology, new d/o received. Meds administered as ordered, labs drawn and reviewed, reported to ordering physician. L groin Mahukar removed by COMMUNICATION CENTER OPERATOR as per d/o, pressure held for five minutes, sterile dressing placed. Site appears stable w/no bleed or hematoma noted. No s/s of acute distress at this time, call light in reach, cont to monitor until rpt is given to NOC RN.
--- NOTE | 2018-08-09 19:48 | NUR ---
PM NOTE. ASSUMED CARE OF PT APROX 1900, PT IS A&O BUT FORGETFUL AT TIMES, PT HAS GREATLY IMPROVED SINCE LAST NOC SHIFT, PT IS CURRENTLY ON 7L HIGH FLOW NC WITH O2 SATS AT 94%. PT HAS NOT BEEN ON THE BIPAP ALL DAY PER REPORT. TELE INTACT, AFIB 110-120'S PER ENVIRONMENTAL HEALTH MANAGER, PT'S BP 137/80, NO EDEMA NOTED ON ASSESSMENT. L/S COARSE T/O, NO WHEEZES OR RHONCHI PRESENT. BT PRESENT AND HYPOACTIVE, ABD IS SLIGHTLY DISTENDED AND FIRM, TENDER TO PALP, PT STATES THIS IS NORMAL FOR HER. PT IS FEBRILE AT 99.4 AND COMPLAINS OF A HEADACHE, WILL MEDICATE PER EMAR. [facility] WAS D/C'D TODAY, DRESSING IS C/D/I, SMALL AMOUNT OF BLOOD ON THE DRESSING, THIS WAS PRESENT PER DAY SHIFT RN. CALL LIGHT IN REACH, BED IS LOCKED AND LOW WILL CONTINUE TO MONITOR.
[2018-08-10 03:55] LABS: Hematocrit 24.3 % (33.0-51.0); Hemoglobin 7.6 g/dL (11.5-16.0)
[2018-08-10 04:10] LABS: International Normalized Ratio 2.22; Prothrombin Time Results 21.9 Sec (9.7-11.5)
[2018-08-10 04:12] LABS: Albumin, Blood 2.1 g/dL (3.4-5.0); Anion Gap 11 mmol/L (6-16); Blood Urea Nitrogen 38 mg/dL (8-24); CO2, Blood 23 mmol/L (21-32); Calcium, Blood 7.6 mg/dL (8.5-10.1); Chloride, Blood 108 mmol/L (98-108); Creatinine, Blood 1.81 mg/dL (0.40-1.00); Glomerular Filtration Rate 30 (60-); Glucose, Blood 178 mg/dL (70-99); Magnesium, Blood 1.5 mg/dL (1.6-2.4); Phosphorus, Blood 2.7 mg/dL (2.5-4.9); Potassium, Blood 3.4 mmol/L (3.5-5.5); Sodium, Blood 142 mmol/L (136-145)
--- NOTE | 2018-08-10 05:52 | NUR ---
SHIFT SUMMARY. PT'S HR INCREASED INTO THE 140'S AGAIN THIS SHIFT, PROVIDER WAS CALLED AND ORDERS OBTAINED TO INCREASE PT'S DOSE OF COREG FROM 12.5MG BID W/MEALS TO 25 MG BID W/MEALS. A ONE TIME ORDER WAS OBTAINED FOR 5MG LOPRESSOR IV PUSH, HOWEVER, THE PT'S HR BEGAN TO TREND DOWN INTO THE 120'S AND MEDICATION WAS HELD. PT'S OTHER VS HAVE BEEN STABLE T/O SHIFT, PT HAS BEEN TITRATED FROM 7L HIGH FLOW TO 5L HIGH FLOW W/SATS >90%, TITRATION WILL CONTINUE PT TOLERATES. PT'S MOLINA IS PATENT AND DRAINING CLEAR YELLOW URINE TO GRAVITY, MOLINA IS SECURED TO THE BED. CALL LIGHT IN REACH, BED IS LOCKED AND LOW WILL CONTINUE TO MONITOR UNTIL REPORT IS GIVEN TO ONCOMING RN.
--- NOTE | 2018-08-10 08:30 | NUR ---
NURSING PCU DAYSHIFT: Assumed care of pt at approx 0700. A/O, pleasant, cooperative w/care. Denies any pain/discomfort. Mild general weakness. Skin is fragile w/scattered bruising on UE's, no breakdown noted. Ambulates w/one staff assist using FWW, repositions independently in bed. Tele in place, afib w/HR 130-140's, no c/o CP/pressure, SBP 130's prior to a.m. meds, no noted edema. L/S improved from prev day, fine crackles noted to LLL, occ scattered wheeze, dyspnea w/exertion, O2 sat low to mid 90's on 4L HF NC, harsh cough producing clear/stringy sputum. Abd mildly distended, BT+, FC w/stat lock present and draining w/o difficulty. PIV x2, s/l. No s/s of acute distress at this time. Discussed importance of breathing exercises and use of FV/IS, verbalized and demonstrated understanding. Seen by PMD, new d/o received. Pt denies any questions/needs at this time, call light in reach, cont to monitor for any changes.
--- NOTE | 2018-08-10 16:24 | NUR ---
NURSING PCU DAYSHIFT: No significant changes noted t/o the shift. BP has remained stable. HR 140-150's prior to a.m. meds, began to trend down one hour after administration w/the lowest maintained rate being 100-110. T/O the afternoon, HR has started to trend back up and is currently maintaining 130's prior to afternoon dose of beta linda. Respiratory status has remained stable. O2 sat 90's while on 4L NC. Continues to experience dyspnea w/exertion. Needs encouragement to work w/IS and FV as well as get OOB and ambulate. Harsh cough remains though has minimal production. Pt denies any current needs or questions regarding plan of care. Call light in reach and pt is able to use w/o difficulty. No s/s of acute distress, cont to monitor until rpt is given to NOC RN.
--- NOTE | 2018-08-10 19:29 | NUR ---
PM NOTE. ASSUMED CARE OF PT APROX 1900, PT IS A&O AND SBA IN THE ROOM, PT CALLS APPROPRIATELY AND IS ABLE TO MAKE NEEDS KNOW. PT IS CURRENTLY ON 4 L NC, WILL TITRATE TOLERATED BY PT. PT IS ABLE TO MOVE FREELY IN BED, HER WEAKNESS HAS IMPROVED, SHE BECOMES SLIGHTLY SOB WITH ACTIVITY BUT THIS HAS GREATLY IMPROVED SINCE PRVIOUS NOC SHIFT, PT'S L/S HAVE GREATLY IMPROVE FROM PREVIOUS SHIFT WELL. TELE INTACT, AFIB IN THE 100'S-120'S PER CIVILIAN JAIL OFFICER. PT'S BP 105/68, NO EDEMA NOTED ON ASSESSMENT. L/S CLEAR T/O, PT IS ON 4 L NC TO BE TITRATED TOLERATED. PT'S RR IS 24, EVEN AN UNLABORED. BT PRESENT AND HYPOACTIVE,ABD IS MILDLY DISTENDED SLIGHTLY FIRM AND A LITTLE TENDER IN THE RIGHT LOWER QUADRANT, THIS HAS BEEN NORMAL FOR THE PT. PT HAS BEEN ENCOURAGED TO BE ACTIVE AND OOB FOR MEALS, PT NEEDS A LOT OF ENCOURAGEMENT AND THERAPUTIC COMMUNICATION TO HELP WITH MOTIVATION. CALL LIGHT IN REACH, BED IS LOCKED AND LOW WILL CONTINUE TO MONITOR.
[2018-08-11 03:47] LABS: Hematocrit 24.7 % (33.0-51.0); Hemoglobin 7.7 g/dL (11.5-16.0)
[2018-08-11 04:01] LABS: International Normalized Ratio 2.19; Prothrombin Time Results 21.6 Sec (9.7-11.5)
[2018-08-11 04:09] LABS: Albumin, Blood 2.2 g/dL (3.4-5.0); Anion Gap 10 mmol/L (6-16); Blood Urea Nitrogen 31 mg/dL (8-24); Bun/Creatinine Ratio 22.6 (12.0-20.0); CO2, Blood 22 mmol/L (21-32); Calcium, Blood 7.9 mg/dL (8.5-10.1); Chloride, Blood 109 mmol/L (98-108); Creatinine, Blood 1.37 mg/dL (0.40-1.00); Glomerular Filtration Rate 41 (60-); Glucose, Blood 121 mg/dL (70-99); Magnesium, Blood 1.4 mg/dL (1.6-2.4); Phosphorus, Blood 2.8 mg/dL (2.5-4.9); Potassium, Blood 3.7 mmol/L (3.5-5.5); Sodium, Blood 141 mmol/L (136-145)
--- NOTE | 2018-08-11 05:52 | NUR ---
SHIFT SUMMARY. NO ACUTE CHANGES NOTED THIS SHIFT. PT'S O2 HAS BEEN TITRATED FROM 4 L NC TO 1 L PRN AT THIS TIME. PT HAS TOLERATED THIS WELL WITH SATS >90%. PT'S MOLINA WAS D/C'D AT 0415 THIS MORNING. PT HAS BEEN ENCOURAGED TO INCREASE ACTIVITY AND BE UP IN A CHAIR FOR MEALS, PT IS AGREEABLE TO THIS. PT'S HR HAS BEEN AFIB IN THE 120'S-130'S WITH OCC TOUCHES IN THE 140'S, THIS HAS BEEN NORMAL FOR THE PT THE LAST 3 NIGHTS. CALL LIGHT IN REACH, BED IS LOCKED AND LOW WILL CONTINUE TO MONITOR UNTIL REPORT IS GIVEN TO ONCOMING RN.
--- NOTE | 2018-08-11 07:30 | NUR ---
RECEIVED REPORT FROM CINDY ARMENDARIZ, AND ASSUMED CARE OF PT.
--- NOTE | 2018-08-11 09:10 | NUR ---
DR. VAUGHN AT BEDSIDE FOR EVALUATION.
--- NOTE | 2018-08-11 17:08 | NUR ---
NURSING SUMMARY ALERT AND ORIENTED X4, ANXIOUS AT TIMES. AFIB WITH RVR, HR 120'S - 140'S, INCREASES TO 160'S WITH EXERTION AND AFTER BREATHING TREATMENTS. GAVE 1700 COREG EARLY. MEDICATED WITH ATIVAN 2MG IVP TWICE TODAY. LUNGS DIMINISHED THROUGHOUT, 1L O2 NC, SATS GREATER THAN 91%, DYSPNEA ON EXERTION. CALLS APPROPRIATELY FOR ASSISTANCE. AMBULATES TO THE BATHROOM WITH A WALKER AND STANDBY ASSISTANCE. VOIDS YELLOW URINE ADEQUATE AMOUNTS. BM X 1 TODAY. TOLERATING ADA DIET. BLOOD SUGAR CHECKS AC & HS, REQUIRED INSULIN PER SLIDING SCALE AT LUNCH AND DINNER. BRUISE TO LEFT THIGH/BUTTOCK AREA HEALING. LEFT GROIN SITE WHERE THE MAHURKER LINE WAS REMOVED IS HEALING WELL, CDI. H&H 7.7/24.7, MG 1.4 RECEIVED REPLACEMENT TODAY. MICHELE 20G AND RFA 20G SALINE LOCKS. PT IS MEDICAL STATUS WITH TELEMETRY.
--- NOTE | 2018-08-11 17:37 | NUR ---
CALLED DR. VAUGHN TO REPORT PT'S AFIB WITH HR 130'S AND 140'S AND HAVE GIVEN COREG EARLY TWICE TODAY AND GAVE HYDRALAZINE WITHOUT MUCH CHANGE. HR INCREASES TO 160'S WITH EXERTION AND BREATHING TREATMENTS. DR. VAUGHN TO PROVIDE NEW ORDERS FOR RATE CONTROL AND PT CHANGED BACK TO PCU STATUS.
--- NOTE | 2018-08-11 22:17 | NUR ---
ASSUMED CARE - PCU NOC PATIENT ALERT AND ORIENTED TO SELF, LOCATION - CONFUSED AT TIMES, EASILY REORIENTED. RESPIRATIONS E/U ON 2 LPM NC. PATIENT DENIES ANY PAIN BUT DOES STATE SHE HAS ANXIETY - TREATED PER EMAR. VSS. PATIENTS HEART RATE REMAIN REMAINS ELEVATED IN AFIB AVERAGING 130'S - WILL CONSULT EMAR AND MD NOTES FOR TREATMENTS AND CALL MD IF NO ORDERS. PATIENT DENIES ANY NEEDS, AMBULATES TO BATHROOM WELL. DISCUSSED TREATMENTS WITH RT. CALL LIGHT W/I REACH, WILL CONTINUE TO MONITOR.
--- NOTE | 2018-08-12 00:05 | NUR ---
NOTIFIED MD ESPINO CALLED TO NOTIFY MD ESPINO THAT PATIENTS HR WAS SUSTRAINING AT 130'S AFIB AND JUMPING UP INTO THE 160'S - NO NEW ORDERS GIVEN.
--- NOTE | 2018-08-12 02:20 | NUR ---
MD ESPINO CALLED NOTIFIED OF HEART RATE IN AFIB 150'S. NEW ORDERS GIVEN.
[2018-08-12 04:25] LABS: Hematocrit 24.9 % (33.0-51.0); Hemoglobin 7.9 g/dL (11.5-16.0)
[2018-08-12 04:40] LABS: International Normalized Ratio 2.45; Prothrombin Time Results 23.9 Sec (9.7-11.5)
[2018-08-12 04:45] LABS: Albumin, Blood 2.2 g/dL (3.4-5.0); Anion Gap 8 mmol/L (6-16); Blood Urea Nitrogen 34 mg/dL (8-24); Bun/Creatinine Ratio 26.4 (12.0-20.0); CO2, Blood 22 mmol/L (21-32); Calcium, Blood 8.2 mg/dL (8.5-10.1); Chloride, Blood 108 mmol/L (98-108); Creatinine, Blood 1.29 mg/dL (0.40-1.00); Glomerular Filtration Rate 44 (60-); Glucose, Blood 141 mg/dL (70-99); Magnesium, Blood 1.3 mg/dL (1.6-2.4); Phosphorus, Blood 3.1 mg/dL (2.5-4.9); Potassium, Blood 3.9 mmol/L (3.5-5.5); Sodium, Blood 138 mmol/L (136-145)
--- NOTE | 2018-08-12 06:06 | NUR ---
PCU NOC SHIFT SUMMARY PATIENT ALERT AND ORIENTED X4. INDPENDENT IN ROOM. PATIENT ENCOURAGED TO COUGH AND TAKE DEEP BREATHS - OXYGEN TITRATED OF AND PATIENT S02 91% ON ROOM AIR (PATIENT REFUSED OXYGEN). PATIENTS HR REMAINED IN AFIB 130-160'S T/O SHIFT, MD ESPINO NOTIFIED X3, PATIENT IS NONSYMPTOMATIC. PATIENT SLEPT WELL T/O SHIFT. AMBULATED WELL AND DENIES ANY NEEDS AT THIS TIME. CALL LIGHT W/I REACH, WILL CONTINUE TO MONITOR AND REPORT TO DAYSHIFT RN. PATIENT VOIDING CLEAR YELLOW URINE T/O SHIFT.
--- NOTE | 2018-08-12 07:42 | NUR ---
DR. WRIGHT: PROVIDER AT BEDSIDE TO SEE PT. HE STS THAT SHE IS OKAY TO GO HOME TODAY FROM HIS STANDPOINT. ORDERS HAVE BEEN PLACED REGARDING NEW MEDS. WILL CONTINUE TO MONITOR & UDPATE NEEDED.
--- NOTE | 2018-08-12 07:50 | NUR ---
ASSUMED CARE: REPORT RECEIVED FROM AUGUSTO Sánchez RN. ASSUMED CARE OF THIS PT AT APPROX 0700. ON ASSESSMENT, THE PT IS SITTING UP AT BEDSIDE IN A CHAIR. SHE DENIES NEEDS OR PAIN AT THIS TIME & STS FEELING WELL OVERALL. SHE REMAINS ON RA W/ O2 SATS > 92%. DYSPNEA NOTED W/ EXERTION, PT RECOVERS QUICKLY. WILL CONTINUE TO MONITOR & UPDATE NEEDED.
--- NOTE | 2018-08-12 08:40 | NUR ---
DR. VAUGHN: PROVIDER AT BEDSIDE TO SEE PT. PLAN IS FOR PT TO D/C HOME TODAY. ORDERS TO BE PLACED FOR MEDS TO BETTER CONTROL HR. PT MAY D/C THIS AFTERNOON IF HR SHOWS IMPROVEMENT. PT VERBALIZES UNDERSTANDING OF THIS. WILL CONTINUE TO MONITOR & UPDATE NEEDED.
[2018-08-12] MEDS ORDERED: DILT180 PO (12:37)
[2018-08-12] MEDS ORDERED: CARV25 PO (12:37)
[2018-08-12] MEDS ORDERED: SPIR25 PO (12:38)
[2018-08-12] MEDS ORDERED: LORA.5 PO (12:39)
--- NOTE | 2018-08-12 13:15 | NUR ---
DISCHARGE TO HOME: DISCHARGE TEACHING HAS BEEN COMPLETED BY THIS RN TO PT, PT's DAUGHTER & PT's SISTER. THEY HAVE VERBALIZED UNDERSTANDING OF ALL MATERIALS & HAVE ASKED QUESTIONS NEEDED. PIV & TELE HAVE BEEN REMOVED. ALL BELONGINGS & D/C PACKET HAVE BEEN TAKEN OUT W/ PT. FOLLOW-UP APPOINTMENTS MADE FOR PT BY DANIAL GARCIA RN, DOCUMENTED IN D/C SCREEN.
== END 2018-08-12 13:17 | disposition home or self-care (01) | DRG 673 ==
LOC: ER 16:45 → ICUW 19:08 → PCU 20:10 → ICUW 20:23 → PCU 08-04 12:12
PROVIDERS: Emergency Medicine; Hospitalist; Internal Medicine Critical Care Medicine; Internal Medicine Nephrology; Pharmacist; ADMIT Internal Medicine
PROC: 0JHM3XZ Insertion of Tunneled Vascular Access Device into Left Upper Leg Subcutaneous Tissue and Fascia, Percutaneous Approach (ICD-10-PCS; principal; 2018-08-03)
PROC: 06HN33Z Insertion of Infusion Device into Left Femoral Vein, Percutaneous Approach (ICD-10-PCS; 2018-08-03)
DX: N17.0 Acute kidney failure with tubular necrosis (principal); J96.01 Acute respiratory failure with hypoxia; J69.0 Pneumonitis due to inhalation of food and vomit; I50.31 Acute diastolic (congestive) heart failure; I13.0 Hypertensive heart and chronic kidney disease with heart failure and stage 1 through stage 4 chronic kidney disease, or unspecified chronic kidney disease; D68.32 Hemorrhagic disorder due to extrinsic circulating anticoagulants; E11.22 Type 2 diabetes mellitus with diabetic chronic kidney disease; N18.9 Chronic kidney disease, unspecified; I48.2 Chronic atrial fibrillation; Z79.01 Long term (current) use of anticoagulants; T45.515A Adverse effect of anticoagulants, initial encounter; F32.9 Major depressive disorder, single episode, unspecified; E87.5 Hyperkalemia; I34.0 Nonrheumatic mitral (valve) insufficiency; Z86.73 Personal history of transient ischemic attack (TIA), and cerebral infarction without residual deficits; E78.5 Hyperlipidemia, unspecified
CPT/HCPCS: 36415; 36556; 36600; 51702; 71045; 71046; 74176; 80048; 80053; 80069; 80162; 81001; 82306; 82330; 82550; 82803; 82947; 83690; 83735; 83970; 84100; 84132; 84145; 84484; 85014; 85018; 85025; 85027; 85610; 86900; 86901; 87015; 87045; 87046; 87070; 87086; 87205; 87507; 87804; 87899; 90686; 93005; 93010; 93308; 93321; 94640; 94660; 94762; 96361; 96374; 96375; 96376; 99285-25; C1752; C9132; G0008; J0360; J0610; J0881; J1644; J1650; J1815; J2060; J2405; J2543; J3430; J3475; J3480; J7030; J7050; J7060; J7070; J7120; P9059